=== PATIENT | male | born 1980 | race Caucasian/White ===

== ENCOUNTER 2019-03-22 00:21 | Emergency (ER) | payer BC ==
[~2019-03-22] VITALS: Ht 182.9 cm; Wt 84.3 kg
[2019-03-22 00:53] VITALS: Ht 182.9 cm; Wt 84.3 kg
[2019-03-22] MEDS ORDERED: SOD CHLORIDE 0.9% 1,000 ML IV STA (04:37)
--- NOTE | 2019-03-22 05:36 | ERD ---
ER Documentation Chief Complaint Chief Complaint per staff, patient with low bp, c/o dizziness. took xanax x 2 hours ago HPI Is a 38-year-old male who appears to have had low blood pressure and dizziness status post taking Xanax 2 hours ago. Patient was taking Xanax to "" help him sleep ". Denies suicidal homicidal ideation. He does complain of extreme lethargy and generalized weakness unrelated to the Xanax. ROS All systems reviewed and are negative except as per history of present illness. Allergies Allergies: Coded Allergies: No Known Drug Allergies (Verified Allergy, Unknown, 03/22/19) Physical Exam Vitals Vital Signs Date Temp Pulse Resp B/P (MAP) Pulse Ox O2 O2 Flow FiO2 Time Delivery Rate 03/22/19 98.2 60 18 107/56 95 00:53 (73) Physical Exam Const: No acute distress Head: Atraumatic Eyes: Normal Conjunctiva ENT: Normal External Ears, Nose and Mouth. Neck: Full range of motion. No meningismus. Resp: Clear to auscultation bilaterally Cardio: Regular rate and rhythm, no murmurs Abd: Soft, non tender, non distended. Normal bowel sounds Skin: No petechiae or rashes Back: No midline or flank tenderness Ext: No cyanosis, or edema Neur: Awake and alert Psych: Normal Mood and Affect Result Diagram: 03/22/19 0517 Results 24 hrs Laboratory Tests Test 03/22/19 05:17 White Blood Count 5.0 10^3/ul Red Blood Count 4.33 10^6/ul Hemoglobin 12.8 g/dl Hematocrit 37.5 % Mean Corpuscular Volume 86.6 fl Mean Corpuscular Hemoglobin 29.6 pg Mean Corpuscular Hemoglobin Concent 34.1 g/dl Red Cell Distribution Width 12.7 % Platelet Count 175 10^3/UL Mean Platelet Volume 9.5 fl Immature Granulocytes % 0.400 % Neutrophils % 47.4 % Lymphocytes % 34.3 % Monocytes % 13.5 % Eosinophils % 3.4 % Basophils % 1.0 % Nucleated Red Blood Cells % 0.0 /100WBC Immature Granulocytes # 0.020 10^3/ul Neutrophils # 2.4 10^3/ul Lymphocytes # 1.7 10^3/ul Monocytes # 0.7 10^3/ul Eosinophils # 0.2 10^3/ul Basophils # 0.1 10^3/ul Nucleated Red Blood Cells # 0.0 10^3/ul Current Medications Medications Dose Sig/Margaret Start Time Status Last (Trade) Ordered Route PRN Stop Time Admin Dose Reason Admin Sodium 1,000 ml @ Q1H STAT 03/22/19 Chloride 1,000 mls/hr IV 04:37 03/22/19 05:36 Procedures/MDM Medical decision m[age]-year-old male with unexplained bradycardia. This clinical patient is to be admitted for observation. Is he has had significant runs of bradycardia in the low to mid 40s. Patient is not on any rate control medication to the best of his knowledge. Patient will be admitted to hospitalist Departure Diagnosis: Primary Impression: Hypotension Hypotension type: unspecified hypotension type Qualified Codes: I95.9 - Hypotension, unspecified Condition: Stable PATRICE RIOS Mar 22, 2019 05:36
[2019-03-22] MEDS ORDERED: SOD CHLORIDE 0.9% 1,000 ML IV SCH (06:02)
[2019-03-22] MEDS ORDERED: DOCUSATE SODIUM 100 MG CAP PO PRN (06:30)
[2019-03-22] MEDS ORDERED: BISACODYL (EC) 5 MG TAB PO PRN (06:30)
[2019-03-22] MEDS ORDERED: ACETAMINOPHEN 325 MG TAB PO PRN (06:30)
[2019-03-22] MEDS ORDERED: NITROGLYCERIN (SL) 0.4 MG TAB SL PRN (06:30)
[2019-03-22] MEDS ORDERED: NACL 0.9% 3 ML SYG IV SCH (06:30)
[2019-03-22] MEDS ORDERED: ONDANSETRON 4 MG INJ IV PRN (06:30)
[2019-03-22] MEDS ORDERED: SOD CHLORIDE 0.9% 500 ML IV ONE (07:00)
[2019-03-22] MEDS ORDERED: PROP20TA4 PO (07:06)
--- NOTE | 2019-03-22 07:06 | HP ---
Date/Time of Note Date/Time of Note DATE: 03/22/19 TIME: 07:00 Assessment/Plan VTE Prophylaxis SCD applied (from Nsg): Yes Pharmacological prophylaxis: NA/contraindicated Pharm contraindication: low risk/ambulating Lines/Catheters IV Catheter Type (from Nrsg): Saline Lock Assessment/Plan Hospital Course This is a 38-year-old male being admitted to the telemetry floor for observation for: #1 near syncope: Secondary possibly to bradycardia versus orthostatic hypotension versus other. Was noted to have blood pressures in the 80s systolic at the detox/rehab facility. We will hydrate the patient with normal saline. We will check an echocardiogram. Will check carotid ultrasound. Orthostatic vital signs twice daily. Will check urine drug screen, urinalysis. Patient does appear to be mildly dehydrated. #2 sinus bradycardia: Patient's EKG on admission was noted to have sinus cyril ycardia at approximately 44 bpm. This could be patient's baseline nonetheless given patient's symptoms will monitor on telemetry. Will consult cardiology . Will trend cardiac enzyme, patient denies any chest pain. #3 illicit drug use: Recently using Xanax and IV and p.o. Dilaudid before entering a rehab/detox facility. Monitor for signs of withdrawal. #4 mild dehydration: Mucous membranes dry, hydrate the patient with IV fluids. #5 DVT GI prophylaxis: SCDs, no GI prophylaxis indicated Further treatment strategy will be implemented as per the clinical course Case management/social work consult: Once patient is cleared for discharge he should go back to the detox/rehab facility for further treatment. Result Diagram: 03/22/19 0517 03/22/19 0517 Results 24hrs Laboratory Tests Test 03/22/19 05:17 White Blood Count 5.0 Red Blood Count 4.33 L Hemoglobin 12.8 L Hematocrit 37.5 L Mean Corpuscular Volume 86.6 Mean Corpuscular Hemoglobin 29.6 Mean Corpuscular Hemoglobin Concent 34.1 Red Cell Distribution Width 12.7 Platelet Count 175 Mean Platelet Volume 9.5 Immature Granulocytes % 0.400 Neutrophils % 47.4 Lymphocytes % 34.3 Monocytes % 13.5 H Eosinophils % 3.4 Basophils % 1.0 Nucleated Red Blood Cells % 0.0 Immature Granulocytes # 0.020 Neutrophils # 2.4 Lymphocytes # 1.7 Monocytes # 0.7 Eosinophils # 0.2 Basophils # 0.1 Nucleated Red Blood Cells # 0.0 Sodium Level 141 Potassium Level 4.3 Chloride Level 101 Carbon Dioxide Level 33 H Anion Gap 7 Blood Urea Nitrogen 11 Creatinine 1.04 Est Glomerular Filtrat Rate mL/min > 60 Glucose Level 92 Calcium Level 9.1 Total Bilirubin 0.8 Direct Bilirubin 0.00 Indirect Bilirubin 0.8 Aspartate Amino Transf (AST/SGOT) 73 H Alanine Aminotransferase (ALT/SGPT) 82 H Alkaline Phosphatase 91 Troponin I < 0.012 B-Type Natriuretic Peptide 105 Total Protein 7.6 Albumin 4.1 Globulin 3.50 H Albumin/Globulin Ratio 1.17 Salicylates Level < 1.0 L Acetaminophen Level < 10.0 L Ethyl Alcohol Level < 10.0 H HPI/ROS Admit Date/Time Admit Date/Time Hx of Present Illness Chief complaint: Low blood pressure This is a 38-year-old male with a past medical history of polysubstance abuse who presented from rehab/detox facility for hypotension. 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 Patient recently entered the detox/rehab facility as the patient has been dealing with substance abuse for Xanax and Dil audid. Patient was taken Dilaudid p.o. and IV. He lives with his family member. He was noted to have blood pressure in the range of 84/59 and he also was feeling lightheaded. Denies any loss of consciousness. At the current time patient denies any chest pain nausea vomiting or shortness of breath. Allergies: NKDA Medications: None ROS Const: As per HPI Eyes : No pain discharge or redness or change in visual acuity ENT: No pain, sore throat, congestion, congestion, dysphagia or discharge Respiratory: No shortness of breath, cough, sputum, wheezing, or pleuritic pain Cardiovascular: No chest pain, palpitation, PND, or edema GI : no change in appetite, abdominal pain, nausea, vomiting, diarrhea, constipation, or change in the color his stool Genitourinary: No dysuria, hematuria, flank pain , discharge or CVA tenderness Musculoskeletal: No joint pain, back pain, neck pain, restricted range of motion in neck or joints Skin: No rash, bruising or hives Neuro: No headache, dizziness, syncope, seizure, focal weakness Endocrine: No polyuria, polydipsia, temperature intolerance Psych: No hallucination, depression, anxiety or suicidal ideation PMH/Family/Social Past Medical History Medical History: no pertinent history Medications Current Medications Sodium Chloride 1,000 ml @ 60 mls/hr [id number] IV ; Start 03/22/19 at 06:02 IV Flush (NS 3 ml) 3 ml PER PROTOCOL IV ; Start 03/22/19 at 06:30 Ondansetron HCl (Zofran Inj) 4 mg Q6H PRN IV NAUSEA/VOMITING; Start 03/22/19 at 06:30 Nitroglycerin (Nitroglycerin (Sl Tab) 0.4 Mg) 1 tab Q5M PRN SL .CHEST PAIN; S tart 03/22/19 at 06:30 Acetaminophen (Tylenol Tab) 650 mg Q6H PRN PO .PAIN 1-3 OR TEMP; Start 03/22/19 at 06:30 Docusate Sodium (Colace) 100 mg Q12H PRN PO .CONSTIPATION; Start 03/22/19 at 06:30 Bisacodyl (Dulcolax) 5 mg DAILY PRN PO .CONSTIPATION; Start 03/22/19 at 06:30 Coded Allergies: No Known Drug Allergies (Verified Allergy, Unknown, 03/22/19) Past Surgical History Past Surgical Hx: no surgical history Social History Xanax, Dilaudid abuse Smoking Status: Current every day smoker Drug Use: other (Of 8) Exam/Review of Systems Vital Signs Vitals Vital Signs Date Temp Pulse Resp B/P (MAP) Pulse Ox O2 O2 Flow FiO2 Time Delivery Rate 03/22/19 60 16 95/71 (79) 98 Room Air 06:50 03/22/19 98.2 00:53 Exam Exam General: Patient is currently lying in bed, he does appear slightly lethargic but he is cooperative HEENT: Atraumatic, normocephalic. The pupils are equal, round and reactive. Extraocular motor are intact Neck: Supple with full range of motion. No rigidity or meningismus Chest: Nontender Lungs: Clear to auscultation bilaterally no crackles rales or wheezing Heart: Sinus bradycardia Abdomen: Soft , nontender, nondistended , bowel sounds are present. No guarding no rebound tenderness , No masses or organomegaly. No costovertebral temporal angle mass Extremities: Normal to inspection, no edema no cyanosis Neurologic: Alert and oriented x4, lethargic but cooperative. Cranial nerves II through XII intact. LEOBARDO MARIE Mar 22, 2019 07:06
[2019-03-22] MEDS ORDERED: DIAZ10TA4 PO (07:07)
[2019-03-22] MEDS ORDERED: QUET100T32 PO (07:07)
[2019-03-22] MEDS ORDERED: ESCI20TA PO (07:08)
[2019-03-22] MEDS ORDERED: BUPR1TAB34 SL (07:09)
[2019-03-22] MEDS ORDERED: MAGNESIUM SULFATE 1 GM/D5W 100 ML IVPB ONE (08:00)
[2019-03-22] MEDS ORDERED: NICOTINE (21 MG/24 HR) PATCH TRANSDERM SCH (09:00)
--- NOTE | 2019-03-22 10:09 | QN ---
Documentation Comment Observation Note: Time: 4 hours Family Hx: Negative for diabetes Evaluation: Multiple exams showed improving symptoms and no evidence of clinical decompensation. KAYLA BE MD Mar 22, 2019 10:09
[2019-03-22 12:20] VITALS: BP 106/77; PULSE 57; RESP 16
--- NOTE | 2019-03-22 15:36 | RADRPT ---
Echocardiogram Report Patient Name: SIERRA GUZMANPatient ID: [id number] : 1980 (38y 8m)Study Date: 03/22/2019 7:16:51 AM Gender: Epicession #: [id number] Tech: Cori Larios EDGAR Location: [facility] Ref.Physician: LEOBARDO MARIE Height(Cm): BSA: Weight(Kg): Quality: AdequateOrder Physician: LEOBARDO MARIE Account #: Procedures: Echocardiographic Report: Transthoracic echocardiogram with complete 2D, M-Mode, and doppler examination. Indications: Bradycardia, and Syncope. Measurements: 2D/M Mode Doppler Measurement Value Normal Range Measurement Value Normal Range LVIDd 2D 4.8 [ 4.2 - 5.8 ] cm AV Peak Kanu 0.9 [ 100.0 - 170.0 ] cm/sec LVIDs 2D 2.5 [ 2.5 - 4.0 ] cm AV Peak PG 3.0 [ 2.0 - 9.0 ] mmHg LVPWd 2D 1.0 [ 0.6 - 1.0 ] cm LVOT Peak Kanu 0.7 [ 70.0 - 110.0 ] cm/sec IVSd 2D 0.9 [ 0.6 - 1.0 ] cm LVOT Peak PG 2.0 [ 2.0 - 6.0 ] mmHg AoR Diam 2D 2.9 [ 2.6 - 3.4 ] cm MV E Peak Kanu 0.9 [ 60.0 - 130.0 ] cm/sec EDV 2D 109.0 [ 62.0 - 150.0 ] ml MV A Peak Kanu 0.3 [ 100.0 - 120.0 ] cm/sec ESV 2D 22.3 [ 21.0 - 61.0 ] ml MV E/A 2.9 [ 0.8 - 1.5 ] ratio EF 2D 79.5 [ 52.0 - 72.0 ] percent MV Decel Time 141 [ 104 - 258 ] msec LA Dimen 2D 3.2 [ 3.0 - 4.0 ] cm Lat E` Kanu 0.1 [ 10.0 - 15.0 ] cm/sec Lateral E/E` 5.8 [ 1.0 - 2.0 ] ratio MV E/A 2.9 [ 0.8 - 1.5 ] ratio TR Peak Kanu 2.6 [ 100.0 - 280.0 ] cm/sec TR Peak PG 27.0 mmHg RVSP 37.0 [ 10.0 - 36.0 ] mmHg RA Pressure 10.0 mmHg Findings: Left Ventricle: Normal left ventricular systolic function. Normal left ventricular cavity size. Normal left ventricular wall thickness. Ejection fraction is visually estimated at 65 %. Tissue Doppler/Mitral Doppler indices are within normal limits. Right Ventricle: Normal right ventricular size. Normal right ventricular systolic function. Left Atrium: The left atrium is normal in size. Right Atrium: The right atrium is normal in size. Mitral Valve: Normal appearance and function of the mitral valve with trace physiologic regurgitation. Aortic Valve: Normal appearance of the aortic valve. No significant aortic stenosis or insufficiency. Tricuspid Valve: Normal appearance of the tricuspid valve. The estimated Peak RVSP is 37 mmHg. There is trace tricuspid regurgitation. Pulmonic Valve: Pulmonic valve not well visualized. Pericardium: Normal pericardium with no significant pericardial effusion. Pleural effusion seen. Aorta: Normal aortic root. IVC: Normal size and normal respiratory collapse consistent with normal right atrial pressure. Conclusions: Normal left ventricular systolic function. Normal left ventricular cavity size. Normal left ventricular wall thickness. Ejection fraction is visually estimated at 65 %. Tissue Doppler/Mitral Doppler indices are within normal limits. Normal appearance and function of the mitral valve with trace physiologic regurgitation. Normal appearance of the aortic valve. No significant aortic stenosis or insufficiency. Normal appearance of the tricuspid valve. The estimated Peak RVSP is 37 mmHg. There is trace tricuspid regurgitation. Electronically Signed By: Rajinder Altamirano 2019-03-22 15:35:46 PDT
--- NOTE | 2019-03-22 17:31 | DS ---
Date/Time of Note Date/Time of Note DATE: 03/22/19 TIME: 17:31 Discharge Summary Admission/Discharge Info Admit Date/Time Discharge Date/Time Discharge Diagnosis Syncope Patient Condition: Stable Hospital Course The patient eloped from the emergency room prior to my evaluation today Home Meds Reported Medications Buprenorphine Hcl/Naloxone Hcl (BUPRENORPHIN-NALOXON 8-2 MG TB) 1 Each Tab.subl, 1 EACH SL DAILY, TAB 03/22/19 Escitalopram Oxalate* (Lexapro*) 20 Mg Tablet, 20 MG PO DAILY, #30 TAB 03/22/19 Quetiapine Fumarate* (Quetiapine Fumarate*) 100 Mg Tablet, 100 MG PO HS, TAB 03/22/19 Diazepam* (Diazepam*) 10 Mg Tablet, 10 MG PO BID PRN for ANXIETY, TAB 03/22/19 Propranolol Hcl* (Propranolol Hcl*) 20 Mg Tablet, 20 MG PO TID, TAB 03/22/19 Primary Care Provider Care Physician No Primary Pending Labs Laboratory Tests Test 03/22/19 05:17 03/22/19 11:29 White Blood Count 5.0 10^3/ul (4.8-10.8) Red Blood Count 4.33 10^6/ul (4.70-6.10) Hemoglobin 12.8 g/dl (14.0-18.0) Hematocrit 37.5 % (42.0-52.0) Mean Corpuscular Volume 86.6 fl (82.0-101.0) Mean Corpuscular 29.6 pg (29.0-33.0) Hemoglobin Mean Corpuscular 34.1 g/dl (32.0-37.0) Hemoglobin Concent Red Cell Distribution 12.7 % (11.5-14.5) Width Platelet Count 175 10^3/UL (140-415) Mean Platelet Volume 9.5 fl (7.4-10.4) Immature Granulocytes % 0.400 % (0.001-0.429) Neutrophils % 47.4 % (39.0-77.0) Lymphocytes % 34.3 % (15.0-51.0) Monocytes % 13.5 % (0.0-11.0) Eosinophils % 3.4 % (0.0-7.0) Basophils % 1.0 % (0.0-2.0) Nucleated Red Blood Cells 0.0 /100WBC (0.0-0.0) % Immature Granulocytes # 0.020 10^3/ul (0.0-0.031) Neutrophils # 2.4 10^3/ul (1.6-7.5) Lymphocytes # 1.7 10^3/ul (0.8-2.9) Monocytes # 0.7 10^3/ul (0.3-0.9) Eosinophils # 0.2 10^3/ul (0.0-0.5) Basophils # 0.1 10^3/ul (0.0-0.1) Nucleated Red Blood Cells 0.0 10^3/ul (0.0-0.0) # Sodium Level 141 mmol/L (135-144) Potassium Level 4.3 mmol/L (3.5-5.1) Chloride Level 101 mmol/L (97-110) Carbon Dioxide Level 33 mmol/L (21-31) Anion Gap 7 (5-13) Blood Urea Nitrogen 11 mg/dl (7-20) Creatinine 1.04 mg/dl (0.61-1.24) Est Glomerular Filtrat > 60 mL/min (>60) Rate mL/min Glucose Level 92 mg/dl (70-220) Calcium Level 9.1 mg/dl (8.4-10.2) Magnesium Level 1.9 mg/dl (1.7-2.5) Total Bilirubin 0.8 mg/dl (0.2-1.3) Direct Bilirubin 0.00 mg/dl (0.00-0.20) Indirect Bilirubin 0.8 mg/dl (0-1.1) Aspartate Amino 73 IU/L (15-46) Transf (AST/SGOT) Alanine 82 IU/L (13-69) Aminotransferase (ALT/SGPT ) Alkaline Phosphatase 91 IU/L (42-121) Troponin I < 0.012 ng/ml (0.000-0.120) B-Type Natriuretic 105 PG/ML (0-125) Peptide Total Protein 7.6 g/dl (6.1-8.1) Albumin 4.1 g/dl (3.3-4.9) Globulin 3.50 g/dl (1.3-3.2) Albumin/Globulin Ratio 1.17 Thyroid Stimulating 3.900 MIU/L (0.465-4.680) Hormone (TSH) Salicylates Level < 1.0 mg/dl (5.0-30.0) Acetaminophen Level < 10.0 ug/ml (10.0-30.0) Ethyl Alcohol Level < 10.0 mg/dl (0-0) Urine Color YELLOW (YELLOW) Urine Clarity CLEAR (CLEAR) Urine pH 7.0 (5.0-9.0) Urine Specific [place] 1.006 (1.003-1.030) Urine Ketones NEGATIVE mg/dL (NEGATIVE) Urine Nitrite NEGATIVE mg/dL (NEGATIVE) Urine Bilirubin NEGATIVE mg/dL (NEGATIVE) Urine Urobilinogen NEGATIVE mg/dL (NEGATIVE) Urine Leukocyte Esterase NEGATIVE Iris/ul Urine Hemoglobin NEGATIVE mg/dL (NEGATIVE) Urine Glucose NEGATIVE mg/dL (NEGATIVE) Urine Total Protein NEGATIVE mg/dl (NEGATIVE) Urine Opiates Screen NEGATIVE (NEGATIVE) Urine Barbiturates NEGATIVE (NEGATIVE) Urine Amphetamines Screen NEGATIVE (NEGATIVE) Urine Benzodiazepines POSITIVE (NEGATIVE) Screen Urine Cocaine Screen NEGATIVE (NEGATIVE) Urine Cannabinoids NEGATIVE (NEGATIVE) VI CORDERO MD Mar 22, 2019 17:31
== END 2019-03-22 12:25 | disposition left against medical advice (07) ==
LOC: E/R 00:21 → SUATTDRO 10:55 → E/R 12:25 → CANBEDREQ 12:33
PROVIDERS: ATTEND Internal Medicine
DX: I95.9 Hypotension, unspecified (principal); R40.2142 Coma scale, eyes open, spontaneous, at arrival to emergency department; R40.2362 Coma scale, best motor response, obeys commands, at arrival to emergency department; R40.2252 Coma scale, best verbal response, oriented, at arrival to emergency department
CPT/HCPCS: 36415; 71045; 80053; 80307; 81003; 83735; 83880; 84443; 84484; 85025; 93005; 93306; 93880; 96374; 99285; J3475; J7030; J7040